=== PATIENT | female | born 1980 | race Caucasian/White ===

== ENCOUNTER 2016-06-10 12:36 | Outpatient (CLI) | payer OTHER | END 2016-06-10 23:00 | LOC: LAB SRH 12:36 | DX: Z34.82 Encounter for supervision of other normal pregnancy, second trimester (principal) | CPT/HCPCS: 90039; 90074; 91162; 91163 ==

== ENCOUNTER 2016-07-08 12:16 | Outpatient (CLI) | payer OTHER | END 2016-07-08 14:45 | disposition home or self-care (01) | LOC: OBC SRH 12:16 → OB SRH 12:21 | PROC: 4A0HXCZ Measurement of Products of Conception, Cardiac Rate, External Approach (ICD-10-PCS; principal; 2016-07-08) | DX: O60.03 Preterm labor without delivery, third trimester (principal); Z3A.31 31 weeks gestation of pregnancy ==

== ENCOUNTER 2016-07-11 20:45 | Outpatient (CLI) | payer OTHER | END 2016-07-11 23:45 | disposition home or self-care (01) | LOC: OBC SRH 20:45 → OB SRH 21:25 | PROC: 3E013GC Introduction of Other Therapeutic Substance into Subcutaneous Tissue, Percutaneous Approach (ICD-10-PCS; principal; 2016-07-11) | DX: O60.03 Preterm labor without delivery, third trimester (principal); Z3A.31 31 weeks gestation of pregnancy ==